=== PATIENT | male | born 1965 | race Caucasian/White ===

== ENCOUNTER → 2021-05-14 10:16 | Outpatient (BNVA) | payer MEDICARE, MEDICAID, SELFPAY | PROVIDERS: PCP Internal Medicine; Referring Provider Internal Medicine; Visit Provider Internal Medicine Gastroenterology | DX: K50.00 Crohn's disease of small intestine without complications (principal); K62.5 Hemorrhage of anus and rectum | CPT/HCPCS: 99202 ==

== ENCOUNTER 2021-07-26 07:49 | Day surgery (SDC) | payer MEDICARE, MEDICAID, SELFPAY ==
[2021-07-20 12:55] VITALS: BMI 24.3
--- NOTE | 2021-07-22 14:39 | HO.ANESPROP2 ---
Documented by User: Camille Duffy NP 07/22/21 14:40 HPI - Anesthesia Eval Consult details Narrative: 55yo M for Colonoscopy [facility] Active Problems Active Problems: All Active Problems (Updated 07/20/21 @ 12:45 by Grace Rubio RN) Ileitis, terminal (Acute) Rectal bleeding (Acute) Past Medical History Medical History (Updated 07/20/21 @ 12:45 by Grace Rubio RN) Ankylosing spondylitis Family History Family History (Updated 05/14/21 @ 10:26 by JUS Sun) Mother Lung cancer Father Cancer HTN (hypertension) Borderline diabetes Surgical History Surgical History (Updated 07/20/21 @ 12:47 by Grace Rubio RN) H/O colonoscopy History of back surgery Hx of umbilical hernia repair Social History Social History Patient Tobacco Use Status: Never used Tobacco Use of substances other than those prescribed or required for medical reasons: No Are you DNR?: No Advance Directives Information Provided: No Meds Allergies Allergy/AdvReac Type Severity Reaction Status Date / Time No Known Allergies Allergy Verified 05/14/21 10:24 Home Medications Medication Instructions Recorded Confirmed Last Taken Type cyclobenzaprine 10 mg tablet 10 mg PO BEDTIME 05/14/21 07/20/21 Unknown History diclofenac potassium 50 mg tablet 75 mg PO DAILY tab 05/14/21 07/20/21 Unknown History Exam Exam Date and Time: July 22, 2021 1439 Height,Weight and Vital Signs: Height 5 ft 6 in Weight 68.492 kg Assessment and Plan Assessment Anesthesia Assessment: Chart Reviewed Documented by User: Jonelle Gardner MD 07/26/21 08:32 [facility] Past Medical History Medical History (Updated 07/20/21 @ 12:45 by Grace Rubio RN) Ankylosing spondylitis Family History Family History (Updated 05/14/21 @ 10:26 by JUS Sun) Mother Lung cancer Father Cancer HTN (hypertension) Borderline diabetes Family history of problems with anesthesia: No Surgical History Surgical History (Updated 07/20/21 @ 12:47 by Grace Rubio RN) H/O colonoscopy History of back surgery Hx of umbilical hernia repair History of Problems with Anesthesia: No Social History Social History Patient Tobacco Use Status: Never used Tobacco Use of substances other than those prescribed or required for medical reasons: No Are you DNR?: No Advance Directives Information Provided: No Meds Allergies Allergy/AdvReac Type Severity Reaction Status Date / Time No Known Allergies Allergy Verified 05/14/21 10:24 Home Medications Medication Instructions Recorded Confirmed Last Taken Type cyclobenzaprine 10 mg tablet 10 mg PO BEDTIME 05/14/21 07/20/21 Unknown History diclofenac potassium 50 mg tablet 75 mg PO DAILY tab 05/14/21 07/20/21 Unknown History Exam Airway Mallampati Class: II TM Dist: >3cm Neck ROM: Full Heart: rrr Lungs: cta Assessment and Plan Assessment Anesthesia Assessment: Anesthesia Plan Discussed and Chart Reviewed Final Anesthetic Review Family History of Problems with Anesthesia: No History of Problems with Anesthesia: No ASA Class: II Final Preanesthetic Review: No Changes in Pt Med Stat, Meds/Allgs Chart Reviewed and Consent Obtained/Reviewed Patient Risk: Intermediate Procedure Risk: Intermediate Anesthetic Plan Anesthetic Plan: MAC: Disposition: Standard PACU
[2021-07-26 08:10] VITALS: BP 122/89; PULSE 87; RESP 16; TEMP 36.7; O2SAT 98; BMI 24.0
[2021-07-26] MEDS: LORazepam 0.5 MG TABLET PO (08:41)
[2021-07-26] MEDS: Lactated Ringers 1,000 ML 100 ML IVCONT (08:51)
--- NOTE | 2021-07-26 08:54 | PC.NURSE ---
Patient vaso-vagal response to intail IV attempt. BP 80/49, diaphoretic, tachypnic. HOB lowered, cold cloth applied, O2 applied via NC. After 10 mins, blood pressure back to 119/79- patient stated I feel much better. Able to be in semi fowlers w/o issue. 0.5mg Ativan administered per Dr Junie melgoza. 22 inserted into R FA without issue.
--- NOTE | 2021-07-26 08:56 | MHC.SHP ---
Pre-Procedural Eval Section A Date of Service: 07/26/21 Section B Chief Complaint: rectal bleeding,crohn's disease Relevant Family History (Specify if Yes): No Relevant Social History: None Present Medications: see Short Stay Collaborative assessment Medical History: Significant History (Ankylosing spondylitis) History of Previous Operations: Relevant previous surgery/procedure and date(s) (H/O colonoscopy History of back surgery Hx of umbilical hernia repair) Allergies: Allergies Allergy/AdvReac Type Severity Reaction Status Date / Time No Known Allergies Allergy Verified 05/14/21 10:24 Review of Systems Sugical H&P ROS: Negative: Constitution, Cardiovascular, Respiratory, Neurological, Psychiatric, Hem-Onc, Allergic/Immunologic, Gastrointestinal, Genitourinary, Musculoskeletal, Integumentary, Endocrine and Eyes/Ears/Nose/Throat Exam Surgical H&P Exam: Normal: HEENT, Normal: Heart, Normal: Lungs, Normal: Extremities, Normal: Abdomen, Normal: Skin and Normal: Neurological Plan Diagnosis/Plan: Unchanged I have reviewed the history and physical and performed a pertinent physical examination on my patient. No changes have occurred unless specified.
--- NOTE | 2021-07-26 09:07 | PM.OP ---
Brief Operative Note Date of Service: 07/26/21 Pre-op diagnosis: hx of ileitis, polyps Post-op diagnosis: same Surgeon: Martha Zaman MD Was an Enrichment Assistant used for this Procedure?: No Estimated blood loss (mL): 5
--- NOTE | 2021-07-26 09:30 | P.OP_ITS ---
Operative Note Operative Note Date of Service: 07/26/21 Narrative: Operative Information Procedure Description: Colonoscopy COLONOSCOPY Instrument: Olympus variable stiffness pediatric scope 190L Colonoscopy Monitoring: Vital signs and clinical assessment, continuous EKG monitoring, Pulse oximetry, Carbon Dioxide monitoring and blood pressure monitoring were done throughout the procedure. Colon withdrawal time was 15 minutes. Procedure: The patient was placed in the left lateral decubitis position and pre-procedure medications were administered. After a digital rectal examination of the ano-rectum, the video colonoscope was inserted into the rectum and advanced through the colon to the cecum/TI. The colonoscope was slowly withdrawn in a retrograde panoramic fashion and the colon mucosa was carefully examined including a retroflexed view of the rectum. Findings and interventions are described below. Procedure Difficulty:moderate Findings: Terminal Ileum-mutliple erosions and ulcerations seen with erythema, bx taken, Cecum:normal, random bx taken, one site was bleeding persistently and x 2 clips applied Ascending Colon: normal, random bx taken Transverse Colon -normal Descending Colon: random bx taken Sigmoid Colon: severe diverticulosis with tight angulated colon and hypertrophic folds Rectum: Retroflexion with moderate sized internal hemorrhoids, grade I Anorectum - normal Colon preparation: Destin Bowel Preparation Scale Right colon; 2 Transverse colon: 2 Left colon; 1 (0 = Unprepared colon segment with mucosa not seen due to solid stool that cannot be cleared. 1 = Portion of mucosa of the colon segment seen, but other areas of the colon segment not well seen due to staining, residual stool and/or opaque liquid. 2 = Minor amount of residual staining, small fragments of stool and/or opaque liquid, but mucosa of colon segment seen well. 3 = Entire mucosa of colon segment seen well with no residual staining, small fragments of stool or opaque liquid) Impression and Post Procedure Diagnosis: erosive ileitis diverticulosis internal hemorrhoids Plan: High fiber diet leaflet Avoid straining at stool, epsom salts and sitz bath, anusol supps or cream Repeat Colonoscopy in 5 years due to poor left sided prep or earlier if clini huma indicated await bx, uncertain if findings due to NSAID use, IBD or both. Might consider CTe. Above findings were reviewed with the patient and relevant handouts were provided if indicated.
[2021-07-26 09:37] VITALS: BP 106/60; PULSE 67; RESP 16; TEMP 37.1; O2SAT 98
[2021-07-26 09:52] VITALS: BP 119/75; PULSE 62; RESP 16; O2SAT 100
== END 2021-07-26 10:34 | disposition home or self-care (01) ==
PROVIDERS: PCP Internal Medicine; Visit Provider Internal Medicine Gastroenterology
PROC: 0DJD8ZZ Inspection of Lower Intestinal Tract, Via Natural or Artificial Opening Endoscopic (ICD-10-PCS; CPT 45378; principal; 2021-07-26 09:10)
DX: K62.5 Hemorrhage of anus and rectum (principal); K57.30 Diverticulosis of large intestine without perforation or abscess without bleeding; K52.89 Other specified noninfective gastroenteritis and colitis; K64.0 First degree hemorrhoids; Z86.010 Personal history of colon polyps
CPT/HCPCS: 45380; 88305

== ENCOUNTER → 2021-10-05 09:06 | Outpatient (BNVA) | payer MEDICARE, MEDICAID, SELFPAY | PROVIDERS: PCP Internal Medicine; Visit Provider Internal Medicine Gastroenterology | DX: K50.00 Crohn's disease of small intestine without complications (principal); R19.5 Other fecal abnormalities; M45.9 Ankylosing spondylitis of unspecified sites in spine | CPT/HCPCS: 99212 ==

== ENCOUNTER → 2022-04-15 12:26 | Outpatient (BNVA) | payer MEDICARE, MEDICAID, SELFPAY | PROVIDERS: PCP Internal Medicine; Visit Provider Internal Medicine Gastroenterology | DX: Z12.11 Encounter for screening for malignant neoplasm of colon (principal) | CPT/HCPCS: 99212 ==

== ENCOUNTER → 2022-10-14 11:23 | Outpatient (BNVA) | payer MEDICARE, MEDICAID, SELFPAY | PROVIDERS: PCP Internal Medicine; Referring Provider Internal Medicine; Visit Provider Internal Medicine Gastroenterology | DX: Z86.010 Personal history of colon polyps (principal); M45.9 Ankylosing spondylitis of unspecified sites in spine | CPT/HCPCS: 99212 ==

== ENCOUNTER 2024-01-05 09:37 | Outpatient (AMB) | payer MEDICARE, MEDICAID, SELFPAY ==
--- NOTE | 2024-01-05 09:47 | MHC.OFFVIS ---
Intake Vital Signs 01/05/24 09:49 Height 5 ft 7 in Weight 143 lb 4.807 oz BMI 22.4 BP 147/77 H Blood Pressure Location Lt brachial Position Sitting Pulse 78 Intake Visit Reasons: 1 yr follow up Intake Note: Ranulfo presents in the office as a 1 year follow up. CC: He states that he is here today for his stomach. Today is okay but he is has good days and bad days. There is days where he would not be able to tell he has crohns but other days are worse than others. Allergies No Known Allergies Allergy (Verified 01/05/24 09:50) HPI 1 yr follow up HPI Details 58 yr old m with hx of Ankylosing spondylitis () being seen for f/u RECAP I had seen him 2017 when I worked at [facility] he had colonoscopy due to pos FIT test this revealed erosions in TI and cecum, thought to be due to NSAID use he was advised to see rheumatology for other treatment options for the he had polyp removed at follow up with me he was still taking diclofenac daily he did not want to try biologics for his I repeated colonoscopy 07/2021-- multiple erosions and ulcerations, severe diverticulosis bc with chronic inflammation TI, colon bx were nml He did cut down diclofenac, taking more tylenol INTERIM: He denies any concerns or worries appetite is great no nausea, or vomiting no blood in stool no diarrhea or constipation no gerd or dysphagia he has no abdominal pain still has ongoing nsaid use --v rarely he says--takes maybe 5 pills a month has his chronic neck and back pain due to which is at baseline he showed me recent lasbs from [facility]- HGB and WCC< renal LFT normal EXAM: GENERAL: The patient is relaxed VITAL SIGNS:see workflow HEENT: Nonicteric sclerae, PERRLA, EOMI. Oropharynx clear. Moist mucous membranes. Conjunctivae appear well perfused. No thyroid mass. no mouth ulcers CHEST: Chest wall is nontender. HEART: Regular rate and rhythm without murmurs. LUNGS: Clear to auscultation bilaterally. ABDOMEN: Soft, positive bowel sounds, nontender, no organomegaly.no flank tenderness SKIN: No rash, no excessive bruising, petechiae, or purpura. NEUROLOGIC: Cranial nerves II-XII intact without motor/sensory deficit. MS: fixed spine, increased kyphosis A/P: 1/ Hx of polyps-colon 2/ ileitis and colitis, ?2/2 NSAID use vs crohns or combination of both. PLAN: 1/ repeat colonoscopy as planned maybe next year 2/ As before, he refuses any further work up right now or medication for his ileitis at this time as he says he feels fine, he is worried about taking any type of immune suppression, i advised him that he may feel well now, but residential he is at risk of small bowel problems such as stricture, neoplasia, surgery etc hence treatment would be to prevent complications. humira might be particularly beneficial, venita for his but he says he is not a med person f/u 1 year [facility] Medical History Ankylosing spondylitis Surgical History History of back surgery Hx of umbilical hernia repair H/O colonoscopy Family History Mother Lung cancer Father Cancer HTN (hypertension) Borderline diabetes Social History Patient Tobacco Use Status: Never used Tobacco Physical Exam Vital Signs: Last Vital Signs Pulse 78 01/05/24 09:49 BP 147/77 H 01/05/24 09:49 BMI result Body Mass Index 22.4 Assessment & Plan Assessment & Plan (1) Ileitis, terminal: Code(s): K50.00 - Crohn's disease of small intestine without complications Plan: see above Coding Level of Care Code Est Pt Level 3 (09696) Diagnoses Ileitis, terminal K50.00
[2024-01-05 09:49] VITALS: BP 147/77; PULSE 78; BMI 22.4
== END 2024-01-05 10:08 | disposition home or self-care (01) ==
PROVIDERS: PCP Internal Medicine; Visit Provider Internal Medicine Gastroenterology
DX: K50.00 Crohn's disease of small intestine without complications (principal)
CPT/HCPCS: 99213

== ENCOUNTER → 2024-01-05 09:37 | Outpatient (BNVA) | payer MEDICARE, MEDICAID, SELFPAY | PROVIDERS: PCP Internal Medicine; Visit Provider Internal Medicine Gastroenterology | DX: K50.00 Crohn's disease of small intestine without complications (principal) | CPT/HCPCS: 99212 ==

== ENCOUNTER 2025-01-06 09:27 | Outpatient (AMB) | payer MEDICARE, MEDICAID, SELFPAY ==
--- NOTE | 2025-01-06 09:47 | A.OFFVIS_ITS ---
Vital Signs 01/06/25 09:48 Height 5 ft 7 in Weight 147 lb 11.355 oz BMI 23.1 BP 154/74 H Blood Pressure Location Lt brachial Position Sitting Pulse 74 Intake Visit Reasons: 1 year follow up Intake Note: Ranulfo presents in the office as a 1 year follow up. CC: He states that he is having no GI concerns - he states that nothing has changed sinc last year. Environmental Services Assistant Required: No Allergies No Known Allergies Allergy (Verified 01/06/25 09:51) HPI HPI 1 year follow up: Details: 59 yr old m with hx of Ankylosing spondylitis () being seen for f/u RECAP I had seen him 2017 when I worked at [facility] he had colonoscopy due to pos FIT test this revealed erosions in TI and cecum, thought to be due to NSAID use he was advised to see rheumatology for other treatment options for the he had polyp removed at follow up with me he was still taking diclofenac daily he did not want to try biologics for his I repeated colonoscopy 07/2021-- multiple erosions and ulcerations, severe diverticulosis bc with chronic inflammation TI, colon bx were nml He did cut down diclofenac, taking more tylenol INTERIM: He feels well from GI stand point its his back that is the main problem he still has hesitancy no blood in stool no diarrhea or constipation no gerd or dysphagia he has no abdominal pain appetite is great no nausea, or vomiting still has ongoing nsaid use but rarely he is going for blood work end on month EXAM: GENERAL: The patient is relaxed VITAL SIGNS:see workflow HEENT: Nonicteric sclerae, PERRLA, EOMI. Oropharynx clear. Moist mucous membranes. Conjunctivae appear well perfused. No thyroid mass. no mouth ulcers CHEST: Chest wall is nontender. HEART: Regular rate and rhythm without murmurs. LUNGS: Clear to auscultation bilaterally. ABDOMEN: Soft, positive bowel sounds, nontender, no organomegaly.no flank tenderness SKIN: No rash, no excessive bruising, petechiae, or purpura. NEUROLOGIC: Cranial nerves II-XII intact without motor/sensory deficit. MS: fixed spine, increased kyphosis A/P: 1/ Hx of polyps-colon 2/ ileitis and colitis, ?2/2 NSAID use vs crohns or combination of both-no active sx PLAN: 1/ repeat colonoscopy as planned now 2/ he will f/u with rheumatology --he might be more keen on medications at this time f/u 1 year [facility] Medical History Ankylosing spondylitis Surgical History History of back surgery Hx of umbilical hernia repair H/O colonoscopy Family History Mother Lung cancer Father Cancer HTN (hypertension) Borderline diabetes Social History Patient Tobacco Use Status: Never used Tobacco Physical Exam Vital Signs: Last Vital Signs Pulse 74 01/06/25 09:48 BP 154/74 H 01/06/25 09:48 BMI result Body Mass Index 23.1 Assessment & Plan Assessment & Plan (1) Ileitis, terminal: Code(s): K50.00 - Crohn's disease of small intestine without complications Category: Medical Plan: see above Medications: New 2 sodium,potassium,mag sulfates 17.5-3.13-1.6 gram (Suprep Bowel Prep Kit) DILUTE; drink 1/2 at 6-8 pm and half at 11 PM- 1AM 354 mL 0RF Coding Level of Care Code Est Pt Level 3 (81836) Diagnoses Ileitis, terminal K50.00
[2025-01-06 09:48] VITALS: BP 154/74; PULSE 74; BMI 23.1
--- OUTSIDE RECORDS SUMMARY | 2025-01-06 10:25 | XMS_ITS | Clinical Summary ---
Author Organization 175 [facility] Address 175 [place] [address] Phone Care Team Providers Care Die Trouble Shooter Name Role Phone Keron Fonseca MD Primary Care Provider Encounters Date Type Department Care Team Description 11/28/2024 9:15 AM EST Office Visit [place] [id number] [phone] Joshua Suárez DPM Acquired hallux valgus of left foot (Primary Dx); Acquired hallux valgus of right foot; Ankylosing spondylitis of multiple sites in spine (CMS/HCC) from Last 3 Months Social History Tobacco Use Types Packs/Day Years Used Date Smoking Tobacco: Never Assessed Sex and Gender Information Value Date Recorded Sex Assigned at Not on file Legal Sex Male 4:37 PM EDT Gender Identity Not on file Sexual Orientation Not on file Plan of Treatment Upcoming Encounters Date Type Department Care Team ([facility] st Contact Info) Description 02/05/2025 9:00 AM EDT Office Visit [place] [id number] [phone] Joshua Suárez DPM [address] [phone] Health Maintenance Due Date Last Done Comments Hepatitis B Vaccines (1 of 3 - 19+ 3-dose series) 1984 Pneumococcal Vaccine: 50+ Years (2 of 2 - PCV) 2015 05/23/2014 Zoster Vaccines (1 of 2) 2015 DTaP,Tdap,and Td Vaccines (3 - Td or Tdap) 05/23/2024 05/23/2014, 11/06/2004 COVID-19 Vaccine ( season) 2024 10/25/2022, 10/11/2021, 03/22/2021, Additional history exists Influenza Vaccine (#1) 2024 10/01/2014 Cholesterol Screening (Lipid Panel) 08/31/2024 Colorectal Cancer Screening: Colonoscopy 08/31/2024 Depression Screening 08/31/2024 HIV Screening 08/31/2024 Hepatitis C Screening 08/31/2024 Medicare Annual Wellness Visit 08/31/2024 Social Influencers of Health Screening 08/31/2024 RSV Immunization Patients 60+ Years Old (1 - 1-dose 75+ series) 2040 Pneumococcal Vaccine: Pediatrics (0 to 5 Years) and At-Risk Patients (6 to 64 Years) Aged Out 05/23/2014 No longer eligible based on patient's age to complete this topic HIB Vaccines Aged Out No longer eligi ble based on patient's age to complete this topic HPV Vaccines Aged Out No longer eligi ble based on patient's age to complete this topic Hepatitis A Vaccines Aged Out No long er eligible based on patient's age to complete this topic IPV Vaccines Aged Out No longer eligi ble based on patient's age to complete this topic MMR Vaccines Aged Out No longer eligi ble based on patient's age to complete this topic Meningococcal ACWY Vaccine Aged Out N o longer eligible based on patient's age to complete this topic Meningococcal B Vacine Aged Out No lo nger eligible based on patient's age to complete this topic RSV Immunization Patients Under 20 months Aged Out No longer eligible based on patient's age to complete this topic Varicella Vaccines Aged Out No longer eligible based on patient's age to complete this topic Insurance , [address] [place] [address] MEDICARE MEDICAID - [place] Care Teams Die Trouble Shooter Relationship Specialty Start Date End Date Keron Fonseca MD [address] [place] [address] PCP - General 08/20/24
== END 2025-01-06 10:09 | disposition home or self-care (01) ==
PROVIDERS: PCP Internal Medicine; Visit Provider Internal Medicine Gastroenterology
DX: K50.00 Crohn's disease of small intestine without complications (principal)
CPT/HCPCS: 99213

== ENCOUNTER → 2025-01-06 09:27 | Outpatient (BNVA) | payer MEDICARE, MEDICAID, SELFPAY | PROVIDERS: PCP Internal Medicine; Visit Provider Internal Medicine Gastroenterology | DX: K50.00 Crohn's disease of small intestine without complications (principal) | CPT/HCPCS: 99212 ==

== ENCOUNTER 2025-01-21 10:01 | Outpatient (REF) | payer MEDICARE, MEDICAID, SELFPAY ==
--- OUTSIDE RECORDS SUMMARY | 2025-01-21 11:22 | XMS_ITS | Clinical Summary ---
Author Organization 175 [facility] Address [address] [place] [address] Phone Care Team Providers Care Spring Winder Name Role Phone Keron Fonseca MD Primary Care Provider [phone] Encounters Date Type Department Care Team Description 11/28/2024 9:15 AM EST Office Visit [place] [id number] [phone] Joshua Suárez DPM Acquired hallux valgus of [...] Upcoming Encounters Date Type Department Care Team ([facility] st Contact Info) Description 02/05/2025 9:00 AM EDT Office Visit [place] [id number] [phone] Joshua Suárez DPM [address] [phone] Health Maintenance Due Date Last Done Comments [...] complete this topic Insurance , [address] [place] [address] MEDICARE MEDICAID - [place] Care Teams Spring Winder Relationship Specialty Start Date End Date Keron Fonseca MD [address] [place] [phone] PCP - General 08/20/24
[2025-01-21 13:02] LABS: MANUAL DIFF FLAG NO
[2025-01-21 13:23] LABS: Basophils Absolute Auto 0.1 X10*3/uL (0.0-0.2); Basophils Percent Auto 0.7 % (0-2); Eosinophils Absolute Auto 0.2 X10*3/uL (0.0-0.4); Eosinophils Percent Auto 1.9 % (0-4); Hematocrit 44.3 % (42.0-52.0); Hemoglobin 14.5 g/dl (14.0-18.0); Imm Gran Abs Auto 0.03 X10*3/uL (0.00-0.03); Imm Gran Pct Auto 0.3 % (0.0-0.4); Lymphocytes Absolute Auto 1.3 X10*3/uL (1.2-4.9); Lymphocytes Percent Auto 13.9 % (20-40); Mean Corpuscular HGB Conc 32.7 g/dl (31.0-36.0); Mean Corpuscular Hemoglobin 30.1 pg (27.0-33.0); Mean Corpuscular Volume 92.1 fL (80.0-98.0); Mean Platelet Volume 9.8 fL (9.4-12.4); Monocytes Absolute Auto 0.8 X10*3/uL (0.1-1.2); Monocytes Percent Auto 7.9 % (2-11); Neutrophils Absolute Auto 7.1 x10*3/uL (2.0-8.3); Neutrophils Percent Auto 75.3 % (45-73); Platelet Count 306 X10*3/uL (160-400); Red Blood Count 4.81 X10*6/uL (4.60-5.80); Red Cell Distribution Width 14.8 % (11.0-16.0); White Blood Count 9.4 X10*3/uL (4.8-10.8)
[2025-01-21 13:37] LABS: Alanine Aminotransferase 17 U/L (0-40); Albumin Level 4.2 g/dL (3.5-5.0); Alkaline Phosphatase 57 U/L (39-117); Anion Gap 12 (12-20); Aspartate Amino Transferase 19 U/L (5-37); Bilirubin Total 0.3 mg/dL (0.0-1.0); Blood Urea Nitrogen 10 mg/dL (9-16); C Reactive Protein 1.91 mg/dL (< or = 0.50); Calcium 9.4 mg/dL (8.4-10.2); Carbon Dioxide 25 mmol/L (22-29); Chloride 108 mmol/L (96-108); Estimated Glomerular Filt Rate > 60; Glucose Random 96 mg/dL (60-115); Sodium 141 mmol/L (135-145); Total Protein 7.4 g/dL (6.5-8.0)
== END 2025-01-21 10:02 | disposition home or self-care (01) ==
LOC: HO.HMGCLDS 10:01
PROVIDERS: PCP Internal Medicine; Visit Provider Internal Medicine Gastroenterology
DX: K50.00 Crohn's disease of small intestine without complications (principal); K75.81 Nonalcoholic steatohepatitis (NASH)
CPT/HCPCS: 36415; 80053; 85025; 86140

== ENCOUNTER 2025-02-27 08:05 | Day surgery (SDC) | payer MEDICARE, MEDICAID, SELFPAY ==
[2025-02-25 13:58] VITALS: BMI 23.0
--- NOTE | 2025-02-26 09:53 | HO.ANESPROP2 ---
Documented by User: Camille Duffy NP 02/26/25 09:54 HPI - Anesthesia Eval Consult details Narrative: 59yo M for Colonoscopy PMF Active Problems Active Problems: All Active Problems Ileitis, terminal (Acute) Rectal bleeding (Acute) Past Medical History Medical History Ankylosing spondylitis Family History Family History Mother Lung cancer Father Cancer HTN (hypertension) Borderline diabetes Family history of problems with anesthesia: No Surgical History Surgical History History of back surgery Hx of umbilical hernia repair H/O colonoscopy History of Problems with Anesthesia: No Social History Social History Patient Tobacco Use Status: Never used Tobacco Use of substances other than those prescribed or required for medical reasons: No Advance Directives: No Advance Directives Information Provided: Yes Meds Allergies Allergy/AdvReac Type Severity Reaction Status Date / Time No Known Allergies Allergy Verified 01/06/25 09:51 Home Medications ?Medication ?Instructions ?Recorded ?Confirmed ?Last Taken ?Type cyclobenzaprine 10 mg tablet 10 mg PO BEDTIME 05/14/21 07/20/21 Unknown History diclofenac sodium 75 mg 75 mg PO BID 01/05/24 Unknown History tablet,delayed release Exam Height,Weight and Vital Signs: Height 5 ft 7 in Weight 66.678 kg Assessment and Plan Assessment Anesthesia Assessment: Chart Reviewed Final Anesthetic Review Family History of Problems with Anesthesia: No History of Problems with Anesthesia: No Documented by User: Belinda Pisano MD 02/27/25 09:19 PMFSH Past Medical History Medical History Ankylosing spondylitis Family History Family History Mother Lung cancer Father Cancer HTN (hypertension) Borderline diabetes Surgical History Surgical History History of back surgery Hx of umbilical hernia repair H/O colonoscopy Social History Social History Patient Tobacco Use Status: Never used Tobacco Use of substances other than those prescribed or required for medical reasons: No Advance Directives: No Advance Directives Information Provided: Yes Meds Allergies Allergy/AdvReac Type Severity Reaction Status Date / Time No Known Allergies Allergy Verified 01/06/25 09:51 Home Medications ?Medication ?Instructions ?Recorded ?Confirmed ?Last Taken ?Type cyclobenzaprine 10 mg tablet 10 mg PO BEDTIME 05/14/21 07/20/21 Unknown History diclofenac sodium 75 mg 75 mg PO BID 01/05/24 Unknown History tablet,delayed release Exam Airway Mallampati Class: II TM Dist: >3cm Heart: rrr Lungs: cta Assessment and Plan Assessment Anesthesia Assessment: Anesthesia Plan Discussed Final Anesthetic Review NPO: Yes ASA Class: III Final Preanesthetic Review: No Changes in Pt Med Stat, Meds/Allgs Chart Reviewed, Consent Obtained/Reviewed and Anes Risks/Benef Reviewed Patient Risk: Intermediate Procedure Risk: Low Anesthetic Plan Anesthetic Plan: MAC: Disposition: Standard PACU
--- NOTE | 2025-02-27 08:26 | MHC.SHP ---
Pre-Procedural Eval Section A - 24 Hr Update-Section A only Date of Service: 02/27/25 Section B - Complete if H&P > 30 days Chief Complaint: Crohn's disease of small intestine without complic Relevant Family History (Specify if Yes): No Relevant Social History: None Present Medications: see Short Stay Collaborative assessment Medical History: Significant History (Ankylosing spondylitis) History of Previous Operations: Relevant previous surgery/procedure and date(s) (History of back surgery Hx of umbilical hernia repair H/O colonoscopy) Allergies: Allergies Allergy/AdvReac Type Severity Reaction Status Date / Time No Known Allergies Allergy Verified 01/06/25 09:51 Review of Systems Sugical H&P ROS: Negative: Constitution, Cardiovascular, Respiratory, Neurological, Psychiatric, Hem-Onc, Allergic/Immunologic, Gastrointestinal, Genitourinary, Musculoskeletal, Integumentary, Endocrine and Eyes/Ears/Nose/Throat Exam Surgical H&P Exam: Normal: HEENT, Normal: Heart, Normal: Lungs, Normal: Extremities, Normal: Abdomen, Normal: Skin and Normal: Neurological Plan Diagnosis/Plan: Unchanged I have reviewed the history and physical and performed a pertinent physical examination on my patient. No changes have occurred unless specified. Time Spent With Patient Time: Total time managing care of this patient today ____ minutes.
[2025-02-27 08:28] VITALS: BP 143/57; PULSE 62; RESP 16; TEMP 36.4; O2SAT 99
[2025-02-27] MEDS: Lactated Ringers 1,000 ML 100 ML IVCONT (08:32)
--- NOTE | 2025-02-27 09:52 | HO.OPN-COLON ---
Colonoscopy Operative Note Operative Note Date of Service: 02/27/25 Narrative: Operative Information Procedure Description: Colonoscopy Indication: crohns and screening Anesthesia: MAC COLONOSCOPY Instrument: Olympus variable stiffness pediatric scope 190L Colonoscopy Monitoring: Vital signs and clinical assessment, continuous EKG monitoring, Pulse oximetry, Carbon Dioxide monitoring and blood pressure monitoring were done throughout the procedure. Colon withdrawal time was 13 minutes. Procedure: The patient was placed in the left lateral decubitis position and pre-procedure medications were administered. After a digital rectal examination of the ano-rectum, the video colonoscope was inserted into the rectum and advanced through the colon to the cecum/TI. The colonoscope was slowly withdrawn in a retrograde panoramic fashion and the colon mucosa was carefully examined including a retroflexed view of the rectum. Findings and interventions are described below. Procedure Difficulty: moderate Findings: Terminal Ileum- patchy ileitis with few erosions -bx taken Bx taken from right, left and rectum in different jars Cecum: 10 mm sessile polyp lifted with eleview and removed with cold snare Ascending Colon: normal Transverse Colon -normal Descending Colon:normal Sigmoid Colon: severe diverticulosis with angulated bowel and luminal narrowing Rectum: Retroflexion with small internal hemorrhoids seen, grade I Anorectum - normal Intervention: cold snare and eleview for EMR, cold forceps bx Colon preparation: [place] Bowel Preparation Scale Right colon; 2 Transverse colon: 2 Left colon; 1-2 (0 = Unprepared colon segment with mucosa not seen due to solid stool that cannot be cleared. 1 = Portion of mucosa of the colon segment seen, but other areas of the colon segment not well seen due to staining, residual stool and/or opaque liquid. 2 = Minor amount of residual staining, small fragments of stool and/or opaque liquid, but mucosa of colon segment seen well. 3 = Entire mucosa of colon segment seen well with no residual staining, small fragments of stool or opaque liquid) Impression and Post Procedure Diagnosis: diverticulosis colon polyp internal hemorrhoids ileitis Plan: High fiber diet leaflet Avoid straining at stool, epsom salts and sitz bath, anusol supps or cream Repeat Colonoscopy in 2 years due to polyp and fair prep on the left or earlier if clinically indicated Above findings were reviewed with the patient and relevant handouts were provided if indicated.
[2025-02-27 09:59] VITALS: BP 111/58; PULSE 71; RESP 18; TEMP 36.1; O2SAT 97
[2025-02-27 10:14] VITALS: BP 109/59; PULSE 52; RESP 16; O2SAT 98
[2025-02-27 10:29] VITALS: BP 115/64; PULSE 58; RESP 16; TEMP 36.2; O2SAT 99
== END 2025-02-27 11:09 | disposition home or self-care (01) ==
PROVIDERS: PCP Internal Medicine; Visit Provider Internal Medicine Gastroenterology
PROC: 0DJD8ZZ Inspection of Lower Intestinal Tract, Via Natural or Artificial Opening Endoscopic (ICD-10-PCS; CPT 45378; principal; 2025-02-27 09:50)
DX: K50.00 Crohn's disease of small intestine without complications (principal); Z86.0101 Personal history of adenomatous and serrated colon polyps; D12.0 Benign neoplasm of cecum; K57.30 Diverticulosis of large intestine without perforation or abscess without bleeding; K64.0 First degree hemorrhoids; K52.9 Noninfective gastroenteritis and colitis, unspecified; M45.9 Ankylosing spondylitis of unspecified sites in spine; Z79.899 Other long term (current) drug therapy; Z98.890 Other specified postprocedural states; Z79.1 Long term (current) use of non-steroidal anti-inflammatories (NSAID)
CPT/HCPCS: 45385; 45380; 45381; 88305; J2003; J2704

== ENCOUNTER → 2025-02-27 08:05 | Outpatient (BNV) | payer MEDICARE, MEDICAID, SELFPAY | PROVIDERS: PCP Internal Medicine; Visit Provider Internal Medicine Gastroenterology | DX: Z12.11 Encounter for screening for malignant neoplasm of colon (principal); D12.0 Benign neoplasm of cecum; K57.30 Diverticulosis of large intestine without perforation or abscess without bleeding; K64.0 First degree hemorrhoids; K52.9 Noninfective gastroenteritis and colitis, unspecified | CPT/HCPCS: 45380; 45385 ==

== ENCOUNTER 2025-03-17 09:43 | Outpatient (AMB) | payer MEDICARE, MEDICAID, SELFPAY ==
--- NOTE | 2025-03-17 09:43 | A.OFFVIS_ITS ---
Intake Visit Reasons: s/p colo Intake Note: Ranulfo presents as a colonoscopy follow up to go over results. CC: he is more concerned of how well is prep worked. Allergies No Known Allergies Allergy (Verified 03/17/25 09:43) HPI HPI s/p colo: Details: 59 yr old m with hx of Ankylosing spondylitis () being seen for f/u RECAP I had seen him 2017 when I worked at [employer] he had colonoscopy due to pos FIT test this revealed erosions in TI and cecum, thought to be due to NSAID use he was advised to see rheumatology for other treatment options for the he had polyp removed at follow up with me he was still taking diclofenac daily he did not want to try biologics for his I repeated colonoscopy 07/2021-- multiple erosions and ulcerations, severe diverticulosis bc with chronic inflammation TI, colon bx were nml He did cut down diclofenac, taking more tylenol Colonoscopy 02/2025-- tubular adenoma removed, no active inflammation on bx INTERIM: He is doing well back issues ongoing no blood in stool no diarrhea or constipation no gerd or dysphagia he has no abdominal pain appetite is great no nausea, or vomiting A/P: 1/ Hx of polyps-colon 2/ ileitis and colitis, ?2/2 NSAID use vs crohns or combination of both-no active sx PLAN: 1/ repeat colonoscopy 2 yrs or earlier if needed 2/ he will f/u with rheumatology --still uncertain about using biologics f/u later in the year [facility] Medical History Ankylosing spondylitis Surgical History History of back surgery Hx of umbilical hernia repair H/O colonoscopy Family History Mother Lung cancer Father Cancer HTN (hypertension) Borderline diabetes Social History Patient Tobacco Use Status: Never used Tobacco Telehealth Telehealth Telehealth Platform: Telephone Location of provider rendering services: practice address Location of patient: address on file Patient Identification confirmed using: Name, : Yes Telehealth method: voice only Patient verbally consented to treatment: Yes Patient verbally consented to billing insurance company: Yes Minutes spent on Phone/Video with Pt.: 6 Assessment & Plan Assessment & Plan (1) Ileitis, terminal: Code(s): K50.00 - Crohn's disease of small intestine without complications Category: Medical Plan as above Coding Level of Care Code Tele Est Pt Level 3 (40752) Diagnoses Ileitis, terminal K50.00
== END 2025-03-17 12:02 | disposition home or self-care (01) ==
LOC: HO.HGI 09:43
PROVIDERS: PCP Internal Medicine; Visit Provider Internal Medicine Gastroenterology
DX: K50.00 Crohn's disease of small intestine without complications (principal)
CPT/HCPCS: 98016

== ENCOUNTER → 2025-03-17 09:43 | Outpatient (BNVA) | payer MEDICARE, MEDICAID, SELFPAY | PROVIDERS: PCP Internal Medicine; Visit Provider Internal Medicine Gastroenterology | DX: Z13.89 Encounter for screening for other disorder (principal) ==

== ENCOUNTER 2025-07-16 14:39 | Emergency (ER) | payer MEDICARE, MEDICAID, SELFPAY ==
[2025-07-16 14:54] VITALS: BP 189/90; PULSE 70; RESP 20; TEMP 36.3; O2SAT 96; BMI 23.1
--- NOTE | 2025-07-16 14:55 | ED_ITS ---
HPI - General Adult General Chief complaint: ETOH/Substance Use Stated complaint: alcohol poisoning? Time Seen by Provider: 07/16/25 16:47 Source: patient and family (patient's mother) Mode of arrival: ambulatory Limitations: no limitations History of Present Illness ED Provider: Birdie Mills PA-C HPI narrative: Patient is a 59 year old assigned at male with a history of Crohn disease, diverticulosis, alcohol abuse / use, and ankylosing spondylitis presenting to the emergency department with nausea, vomiting, diaphoresis and feeling generally unwell after increased alcohol intake. Patient states that he has been nauseous, vomiting bile with no blood, and having non-bloody diarrhea since 0630 this morning. Patient reports drinking 3 pints of Tim Garber 07/14/25-07/15/25 with last drink Monday night around 9PM. Patient states that he believes he has alcohol poisoning as he typically does not drink this much and usually does not feel this unwell. Patient reports his typical alcohol intake is 1 pint of Tim Garber per week over a 2-3 day period. Patient denies a history of complicated alcohol withdrawal, withdrawal seizures, or delirium tremens. Patient reports smoking marijuana occasionally, but denies cocaine, benzodiazepine, or opiate use. Related Data Home Medications ?Medication ?Instructions ?Recorded ?Confirmed cyclobenzaprine 10 mg tablet 10 mg PO BEDTIME 05/14/21 07/20/21 diclofenac sodium 75 mg 75 mg PO BID 01/05/24 tablet,delayed release Allergies Allergy/AdvReac Type Severity Reaction Status Date / Time No Known Allergies Allergy Verified 07/16/25 14:58 Review of Systems 2 Constitutional: Constitutional: Reports as per HPI Eyes: Eyes: Reports as per HPI ENT: Reports as per HPI Cardiovascular: Cardiovascular: Reports as per HPI Respiratory: Respiratory: Reports as per HPI Gastrointestinal: Gastrointestinal: Reports as per HPI Genitourinary: Genitourinary: Reports as per HPI Musculoskeletal: Musculoskeletal: Reports as per HPI Integumentary/Breasts: Skin/Breast: Reports as per HPI Neurologic: Reports as per HPI Psychiatric: Psychiatric: Reports as per HPI Endocrine: Endocrine: Reports as per HPI Hematologic/Lymphatic: Hematologic/Lymphatic: Reports as per HPI Allergic/Immunologic: Allergic/Immunologic: Reports as per HPI [facility] Past Medical History Attestation statement: The following information was validated with the patient. Source: old records reviewed and nursing notes reviewed Medical History Ankylosing spondylitis Surgical History History of back surgery Hx of umbilical hernia repair H/O colonoscopy Family History Family History Mother Lung cancer Father Cancer HTN (hypertension) Borderline diabetes Social History Social History Patient Tobacco Use Status: Never used Tobacco Advance Directives: No Advance Directives Information Provided: Yes Physical Exam ED Vital Signs: Vital Signs - 24 hr 07/16/25 14:54 07/16/25 16:31 07/16/25 17:58 Temperature 97.4 F 98.0 F 98.1 F Pulse Rate 70 55 57 Respiratory Rate 20 14 19 Blood Pressure 189/90 H 148/58 H 156/74 H Pulse Oximetry 96 99 99 Oxygen Delivery Method Room Air Room Air Room Air 07/16/25 18:13 Temperature 98.1 F Pulse Rate 57 Respiratory Rate 19 Blood Pressure 156/74 H Pulse Oximetry 99 Oxygen Delivery Method Room Air BMI result Body Mass Index 23.1 Const General: cooperative, no acute distress, alert and awake Nutritional Appearance: well nourished Orientation/consciousness: patient oriented x3 HENMT Head: Yes normal to inspection and Yes atraumatic Ears: hearing grossly normal bilaterally and external ears normal General nose exam: Normal external nose present, no nasal discharge noted and no epistaxis Face and sinus: Yes normal facial exam, No abrasion and No laceration Mouth: Normal oral and palatal mucosa present, no drooling and no muffled voice Eyes General: appearance normal, both eyes and all related structures Periorbital: periorbital findings normal Eyelids: Yes eyelids normal Conjunctivae: conjunctivae normal Pupils: Equal, round and reactive pupils present EOM: EOMs intact bilaterally Neck Neck: Yes normal visual inspection and Yes full ROM Resp Effort & Inspection: normal respiratory effort and able to speak in complete sentences Neuro Other: mild tremor with outstretched upper extremities General: patient oriented x3, moves all extremities and CN's II-XI intact bilaterally Cranial nerves: Yes Equal, round and reactive pupils present Cognition (Neuro): normal cognition Extrem General: Yes normal to inspection, Yes full ROM and Yes capillary refill normal Psych Appearance: grossly normal Mental Status: mental status grossly normal Affect: normal affect Attitude: cooperative Thought process: Normal thought process present Thought content: Normal thought content present Insight: Good insight present (Psych) Course Course Course Narrative: This is a Rapid Medical Examination (RME) performed by Sarina Joyner PA-C in triage. Full HPI, ROS, assessment and treatment plan per primary provider in the Main ED. Hx: 59 yo M here w/ concerns of I have alcohol poisoning . reports drinking a lot of Tim Garber on Monday (3 days ago), last drink yesterday. reports binge drinking etoh approx once a week. reports hx of withdrawal, no withdrawal seizures. has never required meds for withdrawal. reports nausea and vomiting, no hematemsis. admits to sweats/chills. he is not interested in detox - states he has a plan to quit drinking. PE/vitals: tremulous Plan: labs, tox, ethanol Medications Administered Discontinued Medications Generic Name Dose Route Start Last Admin Trade Name Erwin PRN Reason Stop Dose Admin Sodium Chloride 1,000 mls @ 999 mls/hr 07/16/25 17:00 07/16/25 18:20 Ns IV 07/16/25 18:00 Infused .Q1H1M CLAY Infusion Ondansetron HCl 4 mg 07/16/25 17:45 07/16/25 18:03 Ondansetron Hcl 4 Mg/2 Ml Vial IVPUSH 07/16/25 17:46 4 mg ONCE ONE Administration Medical Decision Making Medical Decision Making [facility] Narrative: Patient is a 59 year old assigned at male with a history of Crohn disease, diverticulosis, alcohol abuse / use, and ankylosing spondylitis presenting to the emergency department with nausea, vomiting, diaphoresis and feeling generally unwell after increased alcohol intake. Patient's physical exam was as noted in the physical exam portion of this note. Patient's blood work was unremarkable. Patient's EKG was unremarkable. I explained my physical exam findings as well as all test results to the patient. I answered all questions asked by the patient. Patient received IV fluids and Zofran which, upon re- evaluation, he stated it helped his symptoms significantly. I stressed the importance of the patient taking his medication as directed (either prescribed or as the over the counter packaging recommends). I stressed the importance of the patient following up with his primary care provider. I stressed the importance of the patient returning to the emergency department immediately if his symptoms were to worsen or if he were to develop any dizziness, shortness of breath, difficulty breathing, chest pain, blurry vision, loss of vision, nausea, vomiting, abdominal pain, fever, chills, back pain, or any other complaints. Patient verbalized agreement and understanding with this treatment plan and discharge. Differential Diagnosis Differential Diagnoses: The differential diagnosis associated with the presentation includes Alcohol use Alcohol abuse Nausea Vomiting Viral illness Admission/Observation Consideration of admission/observation: Escalation of care including admission/observation considered Patient would have been admitted to the hospital had his work up had any findings where hospital admission was appropriate and his clinical presentation warranted hospital admission. Lab Data [facility] Lab Attestation statement: I reviewed the patient's lab results. My interpretation of these results are in the [facility] Rationale portion of this note. 07/16/25 15:27 07/16/25 15:27 Labs: Lab Results 07/16/25 Range/Units 15:27 WBC 10.1 (4.8-10.8) X10*3/uL RBC 4.65 (4.60-5.80) X10*6/uL Hgb 14.1 (14.0-18.0) g/dl Hct 41.1 L (42.0-52.0) % MCV 88.4 (80.0-98.0) fL MCH 30.3 (27.0-33.0) pg MCHC 34.3 (31.0-36.0) g/dl RDW 14.9 (11.0-16.0) % Plt Count 256 (160-400) X10*3/uL MPV 9.3 L (9.4-12.4) fL Immature Gran % (Auto) 0.3 (0.0-0.4) % Neut % (Auto) 88.9 H (45-73) % Lymph % (Auto) 4.9 L (20-40) % [place] % (Auto) 5.3 (2-11) % Eos % (Auto) 0.1 (0-4) % Baso % (Auto) 0.5 (0-2) % Lymph # (Auto) 0.5 L (1.2-4.9) X10*3/uL [place] # (Auto) 0.5 (0.1-1.2) X10*3/uL Eos # (Auto) 0.0 (0.0-0.4) X10*3/uL Baso # (Auto) 0.1 (0.0-0.2) X10*3/uL Abs Immat Gran (auto) 0.03 (0.00-0.03) X10*3/uL Absolute Neuts (auto) 9.0 H (2.0-8.3) x10*3/uL Absolute Nucleated RBC 0.000 (0.0-0.012) X10*3/uL Nucleated RBC % (auto) 0.0 (0.0-0.2) /100WBC Sodium 142 (135-145) mmol/L Potassium 4.0 (3.3-5.1) mmol/L Chloride 101 (96-108) mmol/L Carbon Dioxide 25 (22-29) mmol/L Anion Gap 20 (12-20) BUN 10 (9-16) mg/dL Creatinine 0.65 (0.5-1.4) mg/dL Estim Creat Clear Calc 110.4 Estimated GFR > 60 Random Glucose 113 (60-115) mg/dL Calcium 11.0 H D (8.4-10.2) mg/dL Magnesium 1.8 (1.6-2.6) mg/dL Total Bilirubin 0.9 (0.0-1.0) mg/dL AST 60 H (5-37) U/L ALT 54 H (0-40) U/L Alkaline Phosphatase 62 (39-117) U/L Total Protein 7.5 (6.5-8.0) g/dL Albumin 4.7 (3.5-5.0) g/dL Lipase 32 (8-78) U/L Ethyl Alcohol < 10 mg/dL Independent Interpretation I performed an independent interpretation of an: EKG Interpretation: I independently interpreted this EKG and am in agreement with the below findings: Vent. Rate: 56 BPM Atrial Rate: 56 BPM P-R Int: 132 ms QRS Dur: 68 ms QT Int: 430 ms P-R-T Axes: 66 43 35 degrees QTcB Int: 414 ms Sinus bradycardia Otherwise normal ECG No previous ECGs available DD/ 1702 Discharge Plan Discharge Clinical Impression: Alcohol withdrawal syndrome, Alcohol abuse Patient Disposition: Home, Self-Care Instructions: Abuse of Alcohol (DC), Alcohol Withdrawal (DC) Additional Instructions: You were seen in the Emergency Department today for treatment of alcohol use disorder.? If you would like to cut down or stop your alcohol use please consider calling our outpatient Addiction Treatment office:? [facility] (-F [id number]) [address] [place] [address] You have also been given a list of treatment providers in the area that can assist as well.? If you experience seizures, vomiting blood, black stools, falls, severe headache, chest pain, fevers, trouble breathing, hallucinations or any other concerns you need to call 911 or seek immediate care. Please stay hydrated. IF you are prescribed home medications and/or you are taking over the counter medications at home - it is very important you continue to do so as prescribed / directed unless told otherwise. Follow up with your primary care provider. Return to the emergency department immediately if your symptoms worsen or if you develop any numbness, tingling, dizziness, shortness of breath, difficulty breathing, chest pain, blurry vision, loss of vision, nausea, vomiting, abdominal pain, fever, chills, back pain, or any other complaints. Please see the information below about our Patient Portal. If you are not yet enrolled in the [facility] Patient Portal, you will receive an enrollment email invitation following your visit to any [facility] setting. You may also self-enroll in the Patient Portal by visiting our website: [email or web address] The following information is required to access the Patient Portal: - Your [facility] Medical Record Number - Your personal home email address (must match what is in your electronic medical record, Registration staff can assist with this) - Name - Date of Capabilities of the Patient Portal: - Message some providers - View upcoming appointments - Access your health summary, medical history, and visit history - View current conditions and allergies - View procedure and lab results - View your medications, including guidelines, side effects, and precautions - Complete pre-appointment questionnaires requested by your provider - Ready summary reports of your office visits and procedures To access the Patient Portal Mobile [employer], follow these directions: - Search [facility] in the [employer] Store or [employer] - Download the [employer] - Search for [facility] - Enter your login/password Prescriptions: No Action cyclobenzaprine 10 mg tablet 10 mg PO BEDTIME diclofenac sodium 75 mg tablet,delayed release (DR/EC) 75 mg PO BID Referrals: Keron Fonseca MD [Primary Care Provider, Medical] Interventions: ED Discharge Assessment Last Done: 07/16/25 18:13 Discharge Date/Time: 07/16/25 18:24 Print Language: Citizen Of [place]
[2025-07-16 15:32] LABS: MANUAL DIFF FLAG NO
[2025-07-16 15:39] LABS: Hematocrit 41.1 % (42.0-52.0); Hemoglobin 14.1 g/dl (14.0-18.0); Imm Gran Abs Auto 0.03 X10*3/uL (0.00-0.03); Imm Gran Pct Auto 0.3 % (0.0-0.4); Lymphocytes Absolute Auto 0.5 X10*3/uL (1.2-4.9); Mean Corpuscular HGB Conc 34.3 g/dl (31.0-36.0); Mean Corpuscular Hemoglobin 30.3 pg (27.0-33.0); Mean Corpuscular Volume 88.4 fL (80.0-98.0); NRBC Abs Auto 0.000 X10*3/uL (0.0-0.012); NRBC Pct Auto 0.0 /100WBC (0.0-0.2); Platelet Count 256 X10*3/uL (160-400); Red Blood Count 4.65 X10*6/uL (4.60-5.80); White Blood Count 10.1 X10*3/uL (4.8-10.8)
[2025-07-16 15:50] LABS: Alanine Aminotransferase 54 U/L (0-40); Albumin Level 4.7 g/dL (3.5-5.0); Alkaline Phosphatase 62 U/L (39-117); Anion Gap 20 (12-20); Aspartate Amino Transferase 60 U/L (5-37); Blood Urea Nitrogen 10 mg/dL (9-16); Calcium 11.0 mg/dL (8.4-10.2); Carbon Dioxide 25 mmol/L (22-29); Chloride 101 mmol/L (96-108); Creatinine Clr Calc Pharmacy 110.4; Estimated Glomerular Filt Rate > 60; Lipase 32 U/L (8-78); Magnesium 1.8 mg/dL (1.6-2.6); Potassium 4.0 mmol/L (3.3-5.1); Sodium 142 mmol/L (135-145); Total Protein 7.5 g/dL (6.5-8.0)
[2025-07-16 16:31] VITALS: BP 148/58; PULSE 55; RESP 14; TEMP 36.7; O2SAT 99
--- NOTE | 2025-07-16 16:44 | PC.NURSE ---
Pt placed on monitor. Mother at bedside. Pt states he has alcohol poisoning from drinking 3 bottles of whiskey 48hrs ago. Pt reports abd pain with n/v. Symptoms improving since arriving to ED. Belongings inventoried, no need to change analyst patient at this time. Pt denying desire for detox/rehab/crisis.
--- NOTE | 2025-07-16 16:47 | ECG_ITS ---
Test Reason : QT EVAL Blood Pressure : */* mmHG Vent. Rate : 56 BPM Atrial Rate : 56 BPM P-R Int : 132 ms QRS Dur : 68 ms QT Int : 430 ms P-R-T Axes : 66 43 35 degrees QTcB Int : 414 ms Sinus bradycardia Otherwise normal ECG No previous ECGs available Referred By: Birdie Mills Electronically Signed By: QUYNH PENA MD
[2025-07-16 17:58] VITALS: BP 156/74; PULSE 57; RESP 19; TEMP 36.7; O2SAT 99
--- NOTE | 2025-07-16 18:06 | PC.NURSE ---
Pt given Resource Booklet on discharge. Pt states he is planning to quit drinking and will utilize resources highlighted.
[2025-07-16 18:13] VITALS: BP 156/74; PULSE 57; RESP 19; TEMP 36.7; O2SAT 99
--- OUTSIDE RECORDS SUMMARY | 2025-07-16 18:45 | XMS_ITS | Clinical Summary ---
Author Organization [address] [facility] Address [address] [place] [address] Phone Care Team Providers Care [employer] Name Role Phone Keron Fonseca MD Primary Care Provider [phone] Encounters Date Type Department Care Team Description 06/11/2025 8:30 AM EDT Office Visit Orthopedic Surgery [facility] [address] [phone] Joshua Suárez DPM Sesamoiditis of right foot (Primary Dx); Acquired hallux valgus of right foot; Acquired hallux valgus of left foot; Ankylosing spondylitis of multiple sites in spine ([facility] V24, [facility] V28) from Last 3 Months Social History Tobacco Use Types Packs/Day Years Used Date Smoking Tobacco: Never Assessed Sex and Gender Information Value Date Recorded Sex Assigned at Not on file Legal Sex Male 4:37 PM EDT Gender Identity Not on file Sexual Orientation Not on file Last Filed Vital Signs Vital Sign Reading Time Taken Comments Blood Pressure - - Pulse - - Temperature - - Respiratory Rate - - Oxygen Saturation - - Inhaled Oxygen Concentration - - Weight 68 kg (150 lb) 02/05/2025 10:41 AM EDT Height 170.2 cm (5' 7 ) 02/05/2025 10:41 AM EDT Body Mass Index 23.49 02/05/2025 10:41 AM EDT Plan of Treatment Upcoming Encounters Date Type Department Care Team ([facility] st Contact Info) Description 08/12/2025 8:15 AM EDT Office Visit Orthopedic [facility] [address] [phone] Joshua Suárez DPM [address] [phone] Health Maintenance Due Date Last Done Comments Hepatitis B Vaccines (1 of 3 - 19+ 3-dose series) 1984 Pneumococcal Vaccine: 50+ Years (2 of 2 - PCV) 2015 05/23/2014 Zoster Vaccines (1 of 2) 2015 DTaP,Tdap,and Td Vaccines (3 - Td or Tdap) 05/23/2024 05/23/2014, 11/06/2004 Cholesterol Screening (Lipid Panel) 08/31/2024 Colorectal Cancer Screening: Colonoscopy 08/31/2024 HIV Screening 08/31/2024 Hepatitis C Screening 08/31/2024 Medicare Annual Wellness Visit 08/31/2024 Social Influencers of Health Screening 08/31/2024 Depression Screening 11/06/2024 COVID-19 Vaccine ( season) 2025 10/25/2022, 10/11/2021, 03/22/2021, Additional history exists Influenza Vaccine (#1) 2025 10/01/2014 RSV Immunization Adult Patients (1 - 1-dose 75+ series) 2040 HIB Vaccines Aged Out No longer eligi [...] age to complete this topic Meningococcal B Vaccine Aged Out No l onger eligible based on patient's age to complete this topic RSV Immunization Patients Under 20 months Aged Out No longer eligible based on patient's age to complete this topic Varicella Vaccines Aged Out No longer eligible based on patient's age to complete this topic Insurance MEDICARE MEDICAID - [place] Care Teams [employer] Relationship Specialty Start Date End Date Keron Fonseca MD [address] [place] [id number] PCP - General 08/20/24
== END 2025-07-16 18:24 | disposition home or self-care (01) ==
PROVIDERS: Physician Assistant Medical; Emergency Provider Emergency Medicine Emergency Medical Services; PCP Internal Medicine
DX: R11.2 Nausea with vomiting, unspecified (principal); F10.139 Alcohol abuse with withdrawal, unspecified; Y90.0 Blood alcohol level of less than 20 mg/100 ml; K50.90 Crohn's disease, unspecified, without complications; Z79.899 Other long term (current) drug therapy
CPT/HCPCS: 36415; 80053; 80307; 83690; 83735; 85025; 93005; 96361; 96374; 99284; 99285; J2405

== ENCOUNTER → 2025-07-16 16:47 | Outpatient (BNV) | payer MEDICARE, MEDICAID, SELFPAY | PROVIDERS: Emergency Provider Emergency Medicine Emergency Medical Services; PCP Internal Medicine; Visit Provider Internal Medicine Cardiovascular Disease | DX: R00.1 Bradycardia, unspecified (principal) | CPT/HCPCS: 93010 ==